=== PATIENT | female | born 1960 | race Caucasian/White ===

== ENCOUNTER → 2017-09-17 | Outpatient (CLI) | payer BC ==
[~2017-09-17] MED LIST: DICL-201 PO; FLUO10CA48 PO; ONDA4TAB10 SL; OPTIRAY 320 IV PRN; SPIR100T PO
--- NOTE | 2017-09-17 12:09 | DIAGNOSTIC IMAGING REPORT ---
ABDOMINAL CT WITH AND WITHOUT INTRAVENOUS CONTRAST, LIVER PROTOCOL HISTORY: Follow up liver lesion. TECHNIQUE: Multiaxial CT images of the abdomen were performed both before and after the intravenous administration of contrast to evaluate the liver. COMPARISON STUDY: Abdominal ultrasound 06/27/2017. FINDINGS: There are few small gallstones. There appears be minimal pericholecystic inflammatory change and mild gallbladder wall thickening. The gallbladder wall measures up to 4 mm in thickness. Therefore, these findings are concerning for a developing acute cholecystitis. Moderate well-formed stool seen throughout the colon. No retroperitoneal lymphadenopathy. The pancreas, spleen, adrenal glands, and kidneys are unremarkable. The visualized lung bases are clear. No fractures within the visualized osseous structures. Small hiatus hernia. The visualized loops of bowel show no wall thickening or obstruction. Tiny fat-containing umbilical hernia. The hepatic lesion seen on the prior ultrasound are not clearly identified. IMPRESSION: 1. No hepatic masses identified. 2. Small gallstones with mild gallbladder wall thickening and suggestion of minimal pericholecystic inflammatory change. This raises the possibility of a developing acute cholecystitis. Clinical correlation recommended. 3. These findings were called/faxed to the referring physician's office following dictation. Electronically signed by: Darius Andrade M.D. 09/17/2017 1:38 PM Dictated Date/Time: 09/17/2017 11:58 AM
[2017-09-17 12:24] LABS: BASO % 0.3 %; BASO ABS # 0.02 K/uL (0-0.2); EOS % 5.9 %; EOS ABS # 0.47 K/uL (0-0.5); HEMATOCRIT 41.7 % (37-47); HEMOGLOBIN 13.8 g/dL (12.0-16.0); IG# 0.02 K/uL (0.00-0.02); LYMPH ABS # 1.51 K/uL (1.2-3.4); MEAN CELL VOLUME 91.4 fL (80-100); MEAN CORPUSCULAR HEMOGLOBIN 30.3 pg (25-34); MEAN CORPUSCULAR HGB CONC 33.1 g/dl (32-36); MEAN PLATELET VOLUME 10.3 fL (7.4-10.4); MONO % 4.9 %; MONO ABS # 0.39 K/uL (0.11-0.59); NEUT % 69.6 %; NEUT ABS # 5.55 K/uL (1.4-6.5); PLATELET COUNT 311 K/uL (130-400); RED CELL DISTRIBUTION WIDTH CV 13.2 % (11.5-14.5); RED CELL DISTRIBUTION WIDTH SD 44.5 fL (36.4-46.3); WHITE BLOOD COUNT 7.96 K/uL (4.8-10.8)
[2017-09-17 13:13] LABS: ALBUMIN 4.2 gm/dl (3.4-5.0); ALT/SGPT 58 U/L (12-78); AST/SGOT 31 U/L (15-37); BLOOD UREA NITROGEN 20 mg/dl (7-18); CALCIUM 8.8 mg/dl (8.5-10.1); CARBON DIOXIDE 23 mmol/L (21-32); CREATININE 1.13 mg/dl (0.60-1.20); GLUCOSE 96 mg/dl (70-99); POTASSIUM 4.2 mmol/L (3.5-5.1); SODIUM 137 mmol/L (136-145)
[2017-09-17 13:18] LABS: ALKALINE PHOSPHATASE 107 U/L (45-117); CHOLESTEROL 189 mg/dl (0-200); LDL CHOLESTEROL CALCULATED 105 mg/dl; TOTAL PROTEIN 8.2 gm/dl (6.4-8.2)
== END | disposition home or self-care (01) ==
LOC: C.CTS 10:18
PROVIDERS: ATTEND Internal Medicine
DX: K76.9 Liver disease, unspecified (principal); Z00.00 Encounter for general adult medical examination without abnormal findings; E78.00 Pure hypercholesterolemia, unspecified; E78.5 Hyperlipidemia, unspecified; R73.01 Impaired fasting glucose; E55.9 Vitamin D deficiency, unspecified; W57.XXXA Bitten or stung by nonvenomous insect and other nonvenomous arthropods, initial encounter